=== PATIENT | female | born 1970 | race Caucasian/White ===

== ENCOUNTER 2022-03-08 23:41 | Emergency (ER) | payer OTHER ==
[~2022-03-08] VITALS: Ht 165.1 cm; Wt 75.5 kg
[2022-03-08 23:42] VITALS: BP 134/69
[2022-03-09] MEDS ORDERED: DOXYCYCLINE HYCLATE 100MG TABLET PO ONE (00:45)
[2022-03-09] MEDS ORDERED: metroNIDAZOLE (FLAGYL) 500MG TABLET PO ONE (00:45)
[2022-03-09] MEDS ORDERED: LIDOCAINE 2% MDV 20ML VIAL SC ONE (00:45)
[2022-03-09] MEDS ORDERED: DOXY-443 PO (01:08)
[2022-03-09] MEDS ORDERED: METR-265 PO (01:09)
== END 2022-03-09 01:25 | disposition home or self-care (01) ==
LOC: M ED 23:41
DX: S01.352A Open bite of left ear, initial encounter (principal); S01.312A Laceration without foreign body of left ear, initial encounter; W55.01XA Bitten by cat, initial encounter; Y92.099 Unspecified place in other non-institutional residence as the place of occurrence of the external cause; Z88.0 Allergy status to penicillin